=== PATIENT | female | born 1980 | race Two or more races ===

== ENCOUNTER 2024-04-20 13:22 | Emergency (ER) | payer MEDICAID ==
[~2024-04-20] VITALS: Ht 160 cm; Wt 95.4 kg
[2024-04-20 13:39] VITALS: TEMP 98.7
[2024-04-20 16:11] LABS: BASOPHILS % (AUTO) 0.4 % (0.0-2.0); HEMATOCRIT 36.9 % (36-46); HEMOGLOBIN 12.6 g/dL (12.0-16.0); LYMPHOCYTES # (AUTO) 1.8 K/uL (1.0-4.8); LYMPHOCYTES % (AUTO) 17.9 % (22.0-44.0); MEAN CORPUSCULAR HEMOGLOBIN 31.2 pg (26.0-34.0); MEAN CORPUSCULAR HGB CONC 34.1 G/dL (31.0-37.0); MEAN CORPUSCULAR VOLUME 91 fL (80-100); MONOCYTES # (AUTO) 0.7 K/uL (0.1-1.0); MONOCYTES % (AUTO) 7.2 % (2.0-9.0); NEUTROPHILS # (AUTO) 7.2 K/uL (1.8-7.7); NEUTROPHILS % (AUTO) 73.5 % (40.0-70.0); PLATELET COUNT (AUTO) 190 K/uL (150-450); RED BLOOD CELL COUNT(AUTO) 4.04 MIL/uL (4.00-5.20); RED CELL DISTRIBUTION WIDTH 12.6 % (11.5-14.5); WHITE BLOOD COUNT (AUTO) 9.9 K/uL (4.5-11.0)
[2024-04-20 16:23] LABS: CALCIUM, TOTAL 8.2 mg/dL (8.8-10.5); CREATININE 1.02 mg/dL (0.60-1.30); POTASSIUM 3.6 mmol/L (3.5-5.1)
[2024-04-20] MEDS: ACETAMINOPHEN 500 MG TABLET PO ONE (17:09)
[2024-04-20 17:40] VITALS: BP 124/66; PULSE 73; RESP 18; O2SAT 100
[2024-04-20] MEDS ORDERED: CEPH-558 PO (17:57)
[2024-04-20] MEDS ORDERED: CEPHALEXIN MONOHYDRATE 500 MG CAPSULE PO ONE (18:00)
[2024-04-20] MEDS ORDERED: DOXY50 PO (18:07)
[2024-04-20] MEDS: DOXYCYCLINE HYCLATE 100 MG TABLET PO ONE (18:13)
[2024-04-24] MEDS ORDERED: DOXY50 PO (09:48)
== END 2024-04-20 18:19 | disposition home or self-care (01) ==
LOC: EMS 13:22
DX: L03.115 Cellulitis of right lower limb (principal)
CPT/HCPCS: 80048; 84703; 85025; 93971; 99284